=== PATIENT | female | born 1995 | race American Indian/Alaskan Native ===

== ENCOUNTER 2017-04-25 08:49 | Emergency (ER) | payer MEDICAID, OTHER ==
[2017-04-25 09:00] VITALS: TEMP 98.2; O2SAT 100
[2017-04-25 09:01] VITALS: BMI 24.5
--- NOTE | 2017-04-25 09:39 | ED PDOC ---
HPI: General Adult Time Seen by Provider: 04/25/17 09:07 Chief Complaint (Nursing): Hip Pain Chief Complaint (Provider): bl hip pain History Per: Patient History/Exam Limitations: no limitations Current Symptoms Are (Timing): Still Present Additional Complaint(s): B/l hip pain and going to lower back for 1 year. Here today as she wants it checked. No new injury. No weakness, numbness, tingles. No headaches. No incontinence or constipation. Past Medical History Reviewed: Nursing Documentation, Vital Signs Vital Signs: Last Vital Signs Temp 98.2 F 04/25/17 08:59 Pulse 65 04/25/17 08:59 Resp 16 04/25/17 08:59 BP 146/85 04/25/17 08:59 Pulse Ox 100 04/25/17 08:59 - Medical History PMH: No Chronic Diseases - Surgical History Surgical History: No Surg Hx - Family History Family History: States: Unknown Family Hx - Home Medications Home Medications: Ambulatory Orders Medication Instructions Recorded Ibuprofen [Motrin] 600 mg PO TID 7 Days tab 04/25/17 - Allergies Allergies/Adverse Reactions: Allergies Allergy/AdvReac Type Severity Reaction Status Date / Time No Known Allergies Allergy Verified 03/26/15 10:05 Review of Systems Constitutional: Negative for: Weakness Cardiovascular: Negative for: Chest Pain Respiratory: Negative for: Shortness of Breath Gastrointestinal: Negative for: Nausea, Vomiting, Abdominal Pain, Diarrhea, Constipation Genitourinary Female: Negative for: Dysuria, Frequency, Incontinence Musculoskeletal: Negative for: Neck Pain, Shoulder Pain, Arm Pain Neurological: Negative for: Weakness, Numbness Physical Exam - Reviewed Nursing Documentation Reviewed: Yes Vital Signs Reviewed: Yes - Physical Exam Appears: Positive for: Well, Non-toxic, No Acute Distress Neck: Positive for: Normal, Painless ROM, Supple Cardiovascular/Chest: Positive for: Regular Rate, Rhythm Respiratory: Positive for: CNT, Normal Breath Sounds Gastrointestinal/Abdominal: Positive for: Normal Exam, Bowel Sounds, Soft. Negative for: Tenderness Back: Positive for: Normal Inspection. Negative for: L CVA Tenderness, R CVA Tenderness Extremity: Positive for: Normal ROM, Tenderness (mild b/l hips). Negative for: Pedal Edema, Deformity, Swelling Neurologic/Psych: Positive for: Alert - ECG O2 Sat by Pulse Oximetry: 100 Pulse Ox Interpretation: Normal - Radiology X-Ray: Interpreted by Me, Viewed By Me, Read By Radiologist X-Ray Interpretation: No Acute Disease - Progress ED Course And Treament: 1104: Stable. AAOx3. Pain free. Tolerated PO. FU with pcp. Ambulated with no issues. Disposition - Clinical Impression Clinical Impression: Hip pain - Patient ED Disposition Is Patient to be Admitted: No Counseled Patient/Family Regarding: Studies Performed, Diagnosis, Need For Followup, Rx Given - Disposition Referrals: [facility] [Outside] - 04/29/17 Disposition: Routine/Home Disposition Time: 11:07 Condition: STABLE Additional Instructions: Return if not better in 3 days. Prescriptions: Ibuprofen [Motrin] 600 mg PO TID 7 Days tab Instructions: Musculoskeletal Pain (ED) Forms: [facility] ([place]), [facility] ED School/Work Excuse
--- NOTE | 2017-04-25 10:40 | RAD ---
PROCEDURE: Radiographs of the pelvis. HISTORY: pain COMPARISON: None. FINDINGS: BONES: Pelvic Bones: Unremarkable. Hips: Grossly unremarkable. JOINTS: Sacroiliac Joints: Unremarkable. Pubic Symphysis: Unremarkable. OTHER FINDINGS: None. IMPRESSION: No radiographic evidence of acute fracture or dislocation.
[2017-04-25 11:26] VITALS: BP 110/78; PULSE 82; RESP 18
== END 2017-04-25 11:26 | disposition home or self-care (01) ==
LOC: H.ER 08:49
DX: R10.2 Pelvic and perineal pain (principal); M25.559 Pain in unspecified hip